=== PATIENT | male | born 1960 | race Caucasian/White ===

== ENCOUNTER → 2023-02-08 14:31 | Outpatient (REF) | payer OTHER, SELFPAY | LOC: ANHLAB 14:31 | PROVIDERS: PCP Family Medicine; Visit Provider Plastic Surgery | DX: L82.1 Other seborrheic keratosis (principal) | CPT/HCPCS: 88305 ==

== ENCOUNTER 2023-09-21 07:41 | Day surgery (SDC) | payer OTHER, SELFPAY ==
[2023-08-07 14:58] VITALS: BMI 30.5
[2023-09-15 13:05] VITALS: BMI 29.7
[2023-09-21 08:34] VITALS: BMI 29.7
[2023-09-21 08:36] VITALS: BP 142/86; PULSE 73; RESP 16; TEMP 37.2; O2SAT 96
--- NOTE | 2023-09-21 08:37 | SUR.PREOP ---
pt arrived 22min late
[2023-09-21] MEDS: LACTATED RINGERS 1,000 ML 150 ML IV CONT (08:46)
--- NOTE | 2023-09-21 09:04 | WPDANESEPPF ---
Anes - Initial Pre Proc Eval Procedure: Operation Date: 09/21/23 09:30 Proposed Procedures p Diagnostic Colonoscopy - Manny Quijano MD Date/Time: 09/21/23 09:04 Surgeon: Manny Quijano MD Pre Op Diagnosis: Colon Polyp Patient Data Age: 63 Gender: M Height: 1.65 m Weight: 81.2 kg Last Vital Signs Temp 37.2 C 09/21/23 08:36 Pulse 73 09/21/23 08:36 Resp 16 09/21/23 08:36 BP 142/86 H 09/21/23 08:36 Pulse Ox 96 09/21/23 08:36 O2 Del Method Room Air 09/21/23 08:36 Allergies Allergy/AdvReac Type Severity Reaction Status Date / Time Sulfa (Sulfonamide Allergy Unknown Unknown Verified 09/21/23 08:30 Antibiotics) Home Medications Medication Instructions Recorded Confirmed Type peak flow meter (Truzone Peak Flow #1 ea 06/08/20 07/25/23 Rx Meter) fluticasone propionate 50 1 spray intranasal BID #15.8 mL 03/23/22 09/21/23 Rx mcg/actuation nasal spray,suspension (Flonase Allergy Relief) albuterol sulfate 90 mcg/actuation 2 puff inhalation Q4H PRN 07/01/22 09/21/23 Rx aerosol inhaler (ProAir HFA) shortness of breath or wheezing #8.5 grams irbesartan 300 mg tablet 300 mg PO DAILY #30 tabs 10/12/22 09/21/23 Rx budesonide-formoterol HFA 80 2 puff inhalation Q12H #10.2 grams 11/21/22 09/21/23 Rx mcg-4.5 mcg/actuation aerosol inhaler (Symbicort) Patient hx anesthesia problems: none Family hx anesthesia problems: none Results Review: All pre-operative results and documents have been reviewed as part of the pre-operative evaluation. [facility] Past Medical History Medical History Actinic keratosis (~07/08/21) crusted skin lesion anterior scalp midline Acute non-recurrent maxillary sinusitis BMI 29.0-29.9,adult BMI 30.0-30.9,adult COVID-19 (~04/05/21) COVID-19 (06/30/22) 2nd episode starting 06/30/2022 with testing positive 07/01/2022. 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 Pharyngitis Pigmented skin lesion suspicious for malignant neoplasm (~01/31/23) 0.2 cm darkly pigmented irregular nevus left upper back. Excisional biopsy with pigmented seborrheic keratosis and nevus 02/08/2023. junctional nevus. Protein in urine (07/14/22) trace protein in urinalysis 07/14/2022. Urinalysis normal on 07/06/2023. Family History Family History Father Family history of congestive heart failure Other Diabetes mellitus Social History Social History Smoking status: Never smoker Alcohol intake: current Drinks per week: 6 Alcohol use details: beer wine Substance use: never Substance use type: does not use Current Housing: Decline to Answer Concerned About Future Housing: Decline to Answer Difficulty Paying Gas/Electric Bills: Decline to Answer Difficulty Paying for Meds: Decline to Answer Currently Unemployed: Decline to Answer Education: Decline to Answer Difficulty w/ Childcare or Family Care: Decline to Answer Living arrangements: with family Spiritual care concerns: No Anes - Eval Final PreProcedure Day of Procedure 09/21/23 09:04 Patient weight: overweight Heart: regular rate and rhythm Lungs: clear to auscultation Airway: Mallampati scale class II Neurological: alert and oriented Last oral intake: >/= 8 hours ASA classification: III Emergent: no Anesthetic plan: proceed Anesthesia type and monitoring: general GIVS and standard monitoring Results Review: All pre-operative results and documents have been reviewed as part of the pre-operative evaluation. Informed Consent: The patient's anesthetic
--- NOTE | 2023-09-21 09:19 | PM.HPGS ---
History of Present Illness History of Present Illness Consent: Risks, benefits, and alternatives have been discussed and questions answered. Patient agrees to proceed with procedure. Chief complaint: Neoplasia Screening Narrative: Simone Bedolla is a 63 year old male referred for colonoscopy. Patient reports that his current weight appetite and bowel movements are normal. Patient presents today for neoplasia screening colonoscopy. Patient does have a history of a benign hyperplastic colon polyp removed from the colon 2017. This is not felt to have cancer risk. He states he has had no bleeding. He denies abdominal pain. Family history is noncontributory. Review of Systems Review of Systems: All systems reviewed & are unremarkable except as noted in HPI and below PMFSH Past Medical History Medical History Actinic keratosis (~07/08/21) crusted skin lesion anterior scalp midline Acute non-recurrent maxillary sinusitis BMI 29.0-29.9,adult BMI 30.0-30.9,adult COVID-19 (~04/05/21) COVID-19 (06/30/22) 2nd episode starting 06/30/2022 with testing positive 07/01/2022. 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 Pharyngitis Pigmented skin lesion suspicious for malignant neoplasm (~01/31/23) 0.2 cm darkly pigmented irregular nevus left upper back. Excisional biopsy with pigmented seborrheic keratosis and nevus 02/08/2023. junctional nevus. Protein in urine (07/14/22) trace protein in urinalysis 07/14/2022. Urinalysis normal on 07/06/2023. Family History Family History Father Family history of congestive heart failure Other Diabetes mellitus Social History Social History Smoking status: Never smoker Alcohol intake: current Drinks per week: 6 Alcohol use details: beer wine Substance use: never Substance use type: does not use Current Housing: Decline to Answer Concerned About Future Housing: Decline to Answer Difficulty Paying Gas/Electric Bills: Decline to Answer Difficulty Paying for Meds: Decline to Answer Currently Unemployed: Decline to Answer Education: Decline to Answer Difficulty w/ Childcare or Family Care: Decline to Answer Living arrangements: with family Spiritual care concerns: No Meds Home Medications and Allergies Home Medications Medication Instructions Recorded Confirmed Type peak flow meter (Truzone Peak Flow #1 ea 06/08/20 07/25/23 Rx Meter) fluticasone propionate 50 1 spray intranasal BID #15.8 mL 03/23/22 09/21/23 Rx mcg/actuation nasal spray,suspension (Flonase Allergy Relief) albuterol sulfate 90 mcg/actuation 2 puff inhalation Q4H PRN 07/01/22 09/21/23 Rx aerosol inhaler (ProAir HFA) shortness of breath or wheezing #8.5 grams irbesartan 300 mg tablet 300 mg PO DAILY #30 tabs 10/12/22 09/21/23 Rx budesonide-formoterol HFA 80 2 puff inhalation Q12H #10.2 grams 11/21/22 09/21/23 Rx mcg-4.5 mcg/actuation aerosol inhaler (Symbicort) Allergies Allergy/AdvReac Type Severity Reaction Status Date / Time Sulfa (Sulfonamide Allergy Unknown Unknown Verified 09/21/23 08:30 Antibiotics) Vital Signs Vital Signs - 24 hr 09/21/23 08:36 Temperature 98.9 F Pulse Rate 73 Respiratory Rate 16 Blood Pressure 142/86 H Pulse Oximetry 96 Oxygen Delivery Room Air Exam Narrative: Physical exam reveals patient to be alert. Vital signs stable. HEENT exam is unremarkable. Patient is anicteric. Lungs are clear to auscultation and percussion. Heart is without murmur or extra sounds. Abdomen bowel sounds are pr
[2023-09-21 09:45] VITALS: BP 119/68; PULSE 78; RESP 16; O2SAT 98
[2023-09-21 09:55] VITALS: BP 139/96; PULSE 71; RESP 18; O2SAT 98
--- NOTE | 2023-09-21 09:58 | WPDANESPN ---
Anes - Prog Note Post-Op Date/Time: 09/21/23 09:58 Cardiovascular status: normal Respiratory status: normal Airway patency: baseline Mental status: baseline Post-Op hydration status: normal Vital Signs: Last Vital Signs Temp 37.2 C 09/21/23 08:36 Pulse 78 09/21/23 09:45 Resp 16 09/21/23 09:45 BP 119/68 09/21/23 09:45 Pulse Ox 98 09/21/23 09:45 O2 Del Method Room Air 09/21/23 09:45 Pain Score (VAS): 0/10 I/O: Intake & Output 09/20/23 09/21/23 09/21/23 23:59 07:59 15:59 Intake Total 400 Balance 400 Patient Feedback: Patient satisfied with anesthetic care.
[2023-09-21 10:05] VITALS: BP 131/82; PULSE 72; RESP 16; O2SAT 98
== END 2023-09-21 10:13 | disposition home or self-care (01) ==
PROVIDERS: PCP Family Medicine; Visit Provider Internal Medicine Gastroenterology
PROC: 0DJD8ZZ Inspection of Lower Intestinal Tract, Via Natural or Artificial Opening Endoscopic (ICD-10-PCS; CPT 45378; principal; 2023-09-21 09:30)
DX: Z12.11 Encounter for screening for malignant neoplasm of colon (principal); K57.30 Diverticulosis of large intestine without perforation or abscess without bleeding; K64.8 Other hemorrhoids
CPT/HCPCS: 45378